=== PATIENT | female | born 1995 | race Caucasian/White ===

== ENCOUNTER 2021-06-02 10:24 | Emergency (ER) | payer OTHER ==
[2021-06-02 10:36] VITALS: BP 125/87
--- NOTE | 2021-06-02 10:47 | ED Physician Documentation ---
PD HPI HEENT - Stated complaint Stated Complaint: BLOOD CLOTS IN MOUTH - Chief complaint Chief Complaint: Heent - History obtained from History obtained from: Patient - Additional information Additional information: Had Buzz & Buzz vaccine last night. Noted to very slightly painful spots in her mouth today and she is worried about clotting. No other rashes or easy bleeding/bruising. Review of Systems Constitutional: reports: Reviewed and negative Eyes: reports: Reviewed and negative Ears: reports: Reviewed and negative Nose: reports: Reviewed and negative Cardiac: reports: Reviewed and negative PD PAST MEDICAL HISTORY - Allergies Allergies/Adverse Reactions: Allergies Allergy/AdvReac Type Severity Reaction Status Date / Time Penicillins Allergy Hives Verified 06/02/21 10:36 PD ED PE NORMAL - Vitals Vital signs reviewed: Yes - General General: Alert and oriented X 3, No acute distress - HEENT HEENT: Other (On the left buccal mucosa there is a 2 mm blood blister and on the right buccal mucosa tiny 1 this even smaller.) - Neuro Neuro: Alert and oriented X 3, Normal speech Results - Vitals Vitals: Vital Signs - 24 hr 06/02/21 10:32 Temperature 36.3 C L Heart Rate 109 H Respiratory 16 Rate Blood Pressure 125/87 H O2 Saturation 99 Oxygen O2 Source Room air - Labs Labs: Laboratory Tests 06/02/21 10:55 WBC 6.4 RBC 5.07 Hgb 15.5 Hct 44.3 MCV 87.4 MCH 30.6 MCHC 35.0 RDW 11.8 L Plt Count 201 MPV 9.2 PD MEDICAL DECISION MAKING - ED course ED course: 25-year-old woman quite concerned about blood clots after having Buzz & Buzz vaccine yesterday. She has two blood blisters in her mouth that look posttraumatic. No other evidence of easy bleeding or bruising. CBC was done with no evidence of thrombocytopenia. Departure - Departure Disposition: 01 Home, Self Care Clinical Impression: Blood blister Condition: Good Record reviewed to determine appropriate education?: Yes Comments: Platelet count is normal at 201. Return for new or worsening symptoms. Discharge Date/Time: 06/02/21 11:58
[2021-06-02 11:00] LABS: HCT - HEMATOCRIT 44.3 % (37.0-47.0); HGB - HEMOGLOBIN 15.5 g/dL (12.0-16.0); MEAN CORPUSCULAR HEMOGLOBIN 30.6 pg (27.0-31.0); MEAN CORPUSCULAR VOLUME 87.4 fL (81.0-99.0); MEAN PLATELET VOLUME 9.2 fL (7.9-10.8); RED BLOOD COUNT 5.07 10^6/uL (4.20-5.40); RED CELL DISTRIBUTION WIDTH 11.8 % (12.0-15.0); WHITE BLOOD COUNT 6.4 x10^3/uL (4.8-10.8)
== END 2021-06-02 11:58 | disposition home or self-care (01) ==
LOC: ED 10:24
DX: S00.522A Blister (nonthermal) of oral cavity, initial encounter (principal); X58.XXXA Exposure to other specified factors, initial encounter
CPT/HCPCS: 36415; 85027; 99283

== ENCOUNTER 2021-07-13 15:51 | Emergency (ER) | payer OTHER ==
--- NOTE | 2021-07-13 16:12 | ED Physician Documentation ---
PD HPI NVD - Stated complaint Stated Complaint: NAUSEA/OB - Chief complaint Chief Complaint: Abd Pain - History obtained from History obtained from: Patient - History of Present Illness Timing - onset: How many weeks ago (09/25) Timing - duration: Weeks (09/25) Timing - details: Gradual onset, Still present (worse the past couple of days, unable to eat anything, and nausea with even fluids now.) Associated symptoms: Abdominal pain (mild cramping lower abd). No: Fever Contributing factors: Other (early with positive preg test, EGA 7 weeks by dates.). No: Sick contact, Bad food Improved by: No: Vomiting Worsened by: Eating Similar symptoms before: Has not had sx before Recently seen: Clinic (had home preg test positive and went to [facility] and had blood test to confirm. Has not seen a provider as yet.) Review of Systems Constitutional: denies: Fever, Chills Nose: denies: Rhinorrhea / runny nose, Congestion Throat: denies: Sore throat Respiratory: denies: Cough GI: reports: Nausea, Vomiting. denies: Constipation, Diarrhea : reports: Now EGA (7). denies: Dysuria, Frequency, Discharge, Vaginal bleeding Neurologic: reports: Generalized weakness. 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 ) - Past Surgical History Past Surgical History: No - Present Medications Home Medications: Ambulatory Orders Medication Instructions Recorded Confirmed Doxylamine Succinate [Unisom] 25 mg PO TID #60 tablet 07/13/21 Famotidine [Pepcid] 20 mg PO DAILY #20 tablet 07/13/21 Ondansetron Odt [Zofran] 4 mg TL Q6H PRN #20 tablet 07/13/21 Pyridoxine HCl (Vitamin B6) 25 mg PO BID #60 tablet 07/13/21 [Vitamin B-6] dexAMETHasone [Decadron] 4 mg PO DAILY #5 tablet 07/13/21 - Allergies Allergies/Adverse Reactions: Allergies Allergy/AdvReac Type Severity Reaction Status Date / Time Penicillins Allergy Hives Verified 06/02/21 10:36 - Social History Does the pt smoke?: No Smoking Status: Never smoker Does the pt drink ETOH?: No Does the pt have substance abuse?: No - Immunizations Immunizations are current?: No - POLST Patient has POLST: No PD ED PE NORMAL - Vitals Vital signs reviewed: Yes - General General: Alert and oriented X 3, No acute distress, Well developed/nourished - Neck Neck: Supple, no meningeal sign, No adenopathy - Cardiac Cardiac: RRR, No murmur - Respiratory Respiratory: Clear bilaterally - Abdomen Abdomen: Normal bowel sounds, Soft, Non distended, No organomegaly, Other (mild tenderness suprapubic area without guarding. ) - Female Female : Deferred - Rectal Rectal: Deferred - Back Back: No CVA TTP - Derm Derm: Normal color, Warm and dry - Neuro Neuro: Alert and oriented X 3, No motor deficit, Normal speech Results - Vitals Vitals: Vital Signs - 24 hr 07/13/21 07/13/21 16:05 18:24 Temperature 36.9 C Heart Rate 80 80 Respiratory 19 16 Rate Blood Pressure 128/75 129/88 H O2 Saturation 100 99 Oxygen O2 Source Room air - Labs Labs: Laboratory Tests 07/13/21 07/13/21 07/13/21 16:15 16:15 16:15 WBC 10.7 RBC 5.01 Hgb 15.2 Hct 44.3 MCV 88.4 MCH 30.3 MCHC 34.3 RDW 12.3 Plt Count 252 MPV 9.5 Neut # (Auto) 7.6 H Lymph # (Auto) 2.1 [place] # (Auto) 0.7 Eos # (Auto) 0.2 Baso # (Auto) 0.1 Absolute Nucleated RBC 0.00 Nucleated RBC % 0.0 Sodium 135 Potassium 3.1 L Chloride 100 L Carbon Dioxide 25 Anion Gap 10.0 BUN 10 Creatinine 0.7 Estimated GFR (MDRD) 104 Glucose 117 H Calcium 9.5 Total Bilirubin 0.8 AST 19 ALT 15 Alkaline Phosphatase 46 Total Protein 7.9 Albumin 4.7 Globulin 3.2 Albumin/Globulin Ratio 1.5 Lipase 43 HCG, Quant Urine Color YELLOW Urine Clarity CLEAR Urine pH 6.5 Ur Specific [place] 1.020 Urine Protein NEGATIVE Urine Glucose (UA) NEGATIVE Urine Ketones 15 H Urine Occult Blood NEGATIVE Urine Nitrite NEGATIVE Urine Bilirubin NEGATIVE Urine Urobilinogen 0.2 (NORMAL) Ur Leukocyte Esterase NEGATIVE Ur Microscopic Review NOT INDICATED Urine Culture Comments NOT INDICATED Urine HCG, Qual POSITIVE 07/13/21 16:15 WBC RBC Hgb Hct MCV MCH MCHC RDW Plt Count MPV Neut # (Auto) Lymph # (Auto) [place] # (Auto) Eos # (Auto) Baso # (Auto) Absolute Nucleated RBC Nucleated RBC % Sodium Potassium Chloride Carbon Dioxide Anion Gap BUN Creatinine Estimated GFR (MDRD) Glucose Calcium Total Bilirubin AST ALT Alkaline Phosphatase Total Protein Albumin Globulin Albumin/Globulin Ratio Lipase HCG, Quant 05952.00 Urine Color Urine Clarity Urine pH Ur Specific [place] Urine Protein Urine Glucose (UA) Urine Ketones Urine Occult Blood Urine Nitrite Urine Bilirubin Urine Urobilinogen Ur Leukocyte Esterase Ur Microscopic Review Urine Culture Comments Urine HCG, Qual - Rads (name of study) OB U/S Radiology: Prelim report reviewed (single live IUP 6.2 wks without acute problems. Normal adnexae. ), See rad report PD MEDICAL DECISION MAKING - ED course Complexity details: considered differential (seems like hyperemesis with . Gave IV fluids and meds here with improved symptoms. Can Rx famotidine and also ACOG advised meds. ), d/w patient Departure - Departure Disposition: 01 Home, Self Care Clinical Impression: Hypokalemia Nausea and vomiting Qualifiers: Vomiting type: unspecified Vomiting Intractability: intractable Qualified Code (s): R11.2 - Nausea with vomiting, unspecified Qualifiers: Weeks of gestation: less than 8 weeks Qualified Code(s): Z3A.01 - Less than 8 weeks gestation of Condition: Stable Record reviewed to determine appropriate education?: Yes Instructions: ED Preg Morning Sickness, ED Diet High Potassium Follow-Up: GORDO DELGADO DO [Primary Care Provider] - Prescriptions: dexAMETHasone [Decadron] 4 mg PO DAILY #5 tablet Famotidine [Pepcid] 20 mg PO DAILY #20 tablet Doxylamine Succinate [Unisom] 25 mg PO TID #60 tablet Pyridoxine HCl (Vitamin B6) [Vitamin B-6] 25 mg PO BID #60 tablet Ondansetron Odt [Zofran] 4 mg TL Q6H PRN #20 tablet PRN Reason: Nausea / Vomiting Comments: Frequent fluids and bland food initially. Progress diet as tolerated. The [employer] recommends a combination of medicines for the hyperemesis gravidarum that you are having: Vitamin B6 twice daily as well as doxylamine for nausea 2-3 times daily. Also Decadron steroid daily for just the next several days. Add ondansetron if needed for nausea. With the persistent nausea and vomiting you have had, your stomach would also have gotten irritated so add famotidine acid reducing medicine daily for the next 2 to 3 weeks. Hold off on the vitamin for the next few days until you are feeling well enough and then you can resume it. Sometimes the iron in the vitamin is irritating to the stomach. Follow-up with your [employer]IST[employer] next week, call for an appointment. Your ultrasound showed a normal at just under 7 weeks. Your blood tests and urine test are good with just low potassium of 3.1. This can be treated with just high potassium foods and does not require a particular supplement per se. Add Tylenol if needed for pains and cramps. I transmitted your prescriptions to [facility] in [place]. Discharge Date/Time: 07/13/21 18:26
[2021-07-13 16:23] LABS: BASOPHILS # (AUTO) 0.1 10^3/uL (0.0-0.1); BASOPHILS % (AUTO) 0.5 %; EOSINOPHILS # (AUTO) 0.2 10^3/uL (0.0-0.7); EOSINOPHILS % (AUTO) 1.8 %; HCT - HEMATOCRIT 44.3 % (37.0-47.0); HGB - HEMOGLOBIN 15.2 g/dL (12.0-16.0); LYMPHOCYTES # (AUTO) 2.1 10^3/uL (1.5-3.5); LYMPHOCYTES % (AUTO) 19.3 %; MEAN CORPUSCULAR HEMOGLOBIN 30.3 pg (27.0-31.0); MEAN CORPUSCULAR HGB CONC 34.3 g/dL (32.0-36.0); MEAN CORPUSCULAR VOLUME 88.4 fL (81.0-99.0); MEAN PLATELET VOLUME 9.5 fL (7.9-10.8); MONOCYTES # (AUTO) 0.7 10^3/uL (0.0-1.0); MONOCYTES % (AUTO) 6.8 %; NEUTROPHILS # (AUTO) 7.6 10^3/uL (1.5-6.6); NEUTROPHILS % (AUTO) 71.3 %; PLT - PLATELET COUNT 252 10^3/uL (130-450); RED BLOOD COUNT 5.01 10^6/uL (4.20-5.40); RED CELL DISTRIBUTION WIDTH 12.3 % (12.0-15.0); WHITE BLOOD COUNT 10.7 x10^3/uL (4.8-10.8)
[2021-07-13 16:28] LABS: BILIRUBIN,URINE NEGATIVE (NEGATIVE); GLUCOSE, URINE (UA) NEGATIVE (NEGATIVE); KETONES,URINE (UA) 15 mg/dL (NEGATIVE); LEUKOCYTE ESTERASE, URINE NEGATIVE (NEGATIVE); NITRITE,URINE NEGATIVE (NEGATIVE); OCCULT BLOOD,URINE NEGATIVE (NEGATIVE); PH,URINE 6.5 PH (5.0-7.5); PROTEIN,URINE NEGATIVE (NEGATIVE); UROBILINOGEN,URINE 0.2 (NORMAL) E.U./dL (NORMAL)
[2021-07-13] MEDS ORDERED: SODIUM CHLORIDE 0.9% 1,000 ML IV STA ×2 (16:28→16:29)
[2021-07-13] MEDS ORDERED: ONDANSETRON 4 MG/2 ML VIAL IVP STA (16:28)
[2021-07-13] MEDS ORDERED: DEXAMETHASONE 10 MG/ML VIAL IVP STA (16:29)
[2021-07-13] MEDS ORDERED: FAMOTIDINE 20 MG/2 ML VIAL IVP STA (16:30)
[2021-07-13 16:33] LABS: CLARITY,URINE CLEAR (CLEAR); HCG UR QUAL POSITIVE
[2021-07-13 16:35] LABS: ALBUMIN 4.7 g/dL (3.2-5.5); ALBUMIN/GLOBULIN RATIO 1.5 (1.0-2.2); BILIRUBIN,TOTAL 0.8 mg/dL (0.2-1.0); CALCIUM 9.5 mg/dL (8.5-10.3); CREATININE 0.7 mg/dL (0.4-1.0); POTASSIUM 3.1 mmol/L (3.5-5.0); TOTAL PROTEIN 7.9 g/dL (6.7-8.2)
--- NOTE | 2021-07-13 17:53 | Ultrasound Report ---
PROCEDURE: OB First Trimester w/TV INDICATIONS: 7WKS EGA, Lower cramps, N/V OUTSIDE/PRIOR DATING DATA: Last menstrual period (LMP): LMP-based estimated date of delivery (AGUSTO): 02/28/2022. First dating scan (date and location): 07/13/2021. Estimated date of delivery (AGUSTO) from first dating scan: 03/06/2022. The below data below was generated using the ultrasound AGUSTO of 03/06/2022 TECHNIQUE: Real-time scanning was performed of the fetus and maternal pelvic organs, with image documentation. Endovaginal scanning was also performed to better visualize the fetus and maternal ovaries. COMPARISON: None FINDINGS: Embryo: Single living intrauterine identified. pole and yolk sac identified. [place]-r ump length measures 0.5 cm corresponding to ultrasound estimated gestational age of 6 weeks 2 days. T here is a small 2.1 x 2.1 x 0.6 cm subchorionic bleed. Heart rate: 127 bpm Measurement variability in dating: +/- 4 weeks by LMP, +/- 7 days by mean sac diameter (use before 6 weeks gestation if crown-rump length not able to be measured), +/- 5 days by crown-rump length (6-12 weeks gestation). Maternal organs: Right corpus luteal cyst IMPRESSION: 1. Single living intrauterine with ultrasound estimated gestational age of 6 weeks 2 days c orresponding to ultrasound AGUSTO of 03/06/2022. 2. 2.1 x 2.1 x 0.6 cm naz-gestational bleed. Reviewed by: Kaylene Maloney MD, PhD on 07/13/2021 5:51 PM PDT Approved by: Kaylene Maloney MD, PhD on 07/13/2021 5:51 PM PDT Station ID: [id number]
[2021-07-13 18:25] VITALS: BP 129/88
== END 2021-07-13 18:26 | disposition home or self-care (01) ==
LOC: ED 15:51
DX: O21.1 Hyperemesis gravidarum with metabolic disturbance (principal); Z3A.01 Less than 8 weeks gestation of pregnancy
CPT/HCPCS: 36415; 80053; 81001; 81003; 81025; 83690; 84702; 85025; 87086; 96361; 96374; 99284

== ENCOUNTER 2021-08-03 07:51 | Emergency (ER) | payer OTHER ==
[2021-08-03] MEDS ORDERED: SODIUM CHLORIDE 0.9% 1,000 ML IV STA (08:22)
[2021-08-03 08:27] LABS: BASOPHILS % (AUTO) 0.5 %; EOSINOPHILS # (AUTO) 0.3 10^3/uL (0.0-0.7); EOSINOPHILS % (AUTO) 3.5 %; HCT - HEMATOCRIT 39.1 % (37.0-47.0); HGB - HEMOGLOBIN 13.8 g/dL (12.0-16.0); LYMPHOCYTES # (AUTO) 1.4 10^3/uL (1.5-3.5); LYMPHOCYTES % (AUTO) 17.5 %; MEAN CORPUSCULAR HEMOGLOBIN 30.9 pg (27.0-31.0); MEAN CORPUSCULAR HGB CONC 35.3 g/dL (32.0-36.0); MEAN CORPUSCULAR VOLUME 87.7 fL (81.0-99.0); MEAN PLATELET VOLUME 9.8 fL (7.9-10.8); MONOCYTES # (AUTO) 0.5 10^3/uL (0.0-1.0); MONOCYTES % (AUTO) 6.6 %; NEUTROPHILS # (AUTO) 5.6 10^3/uL (1.5-6.6); NEUTROPHILS % (AUTO) 71.6 %; PLT - PLATELET COUNT 235 10^3/uL (130-450); RED BLOOD COUNT 4.46 10^6/uL (4.20-5.40); RED CELL DISTRIBUTION WIDTH 12.1 % (12.0-15.0); WHITE BLOOD COUNT 7.8 x10^3/uL (4.8-10.8)
[2021-08-03 08:37] LABS: ALBUMIN 4.1 g/dL (3.2-5.5); ALBUMIN/GLOBULIN RATIO 1.2 (1.0-2.2); BILIRUBIN,TOTAL 0.7 mg/dL (0.2-1.0); CALCIUM 9.4 mg/dL (8.5-10.3); CREATININE 0.6 mg/dL (0.4-1.0); POTASSIUM 3.5 mmol/L (3.5-5.0); TOTAL PROTEIN 7.4 g/dL (6.7-8.2)
[2021-08-03 10:06] LABS: BILIRUBIN,URINE NEGATIVE (NEGATIVE); GLUCOSE, URINE (UA) NEGATIVE (NEGATIVE); KETONES,URINE (UA) NEGATIVE (NEGATIVE); LEUKOCYTE ESTERASE, URINE NEGATIVE (NEGATIVE); NITRITE,URINE NEGATIVE (NEGATIVE); OCCULT BLOOD,URINE NEGATIVE (NEGATIVE); PROTEIN,URINE NEGATIVE (NEGATIVE); UROBILINOGEN,URINE 0.2 (NORMAL) E.U./dL (NORMAL)
[2021-08-03 10:09] VITALS: BP 109/68
[2021-08-03 10:13] LABS: CLARITY,URINE HAZY (CLEAR)
[2021-08-03 10:14] LABS: AMORPHOUS SEDIMENT,UR Few /LPF; BACTERIA,URINE Moderate /HPF (None Seen); RBC,URINE 0-5 /HPF (0-5); SQUAMOUS EPITHELIAL CELL,UR MANY Squamous (<= Few); WBC,URINE 0-3 /HPF (0-5)
[2021-08-03] MEDS ORDERED: ONDANSETRON 4 MG/2 ML VIAL IVP STA (10:17)
--- NOTE | 2021-08-03 10:28 | ED Physician Documentation ---
PD HPI NVD - Stated complaint Stated Complaint: N/V, DIZZY - Chief complaint Chief Complaint: Abd Pain - History obtained from History obtained from: Patient - History of Present Illness Timing - onset: How many weeks ago (6) Timing - duration: Hours Timing - details: Gradual onset, Still present Associated symptoms: Dizzy. No: Fever, Abdominal pain Contributing factors: Other () Improved by: Vomiting, Meds Similar symptoms before: Diagnosis () Recently seen: Clinic, Emergency Dept - Additonal information Additional information: 25-year-old female who is 10 to 11 weeks has developed nausea and vomiting that is associated with and she has had nausea every day. She is now developed enough vomiting that she feels lightheaded and dizzy and she has come to the emergency department. She does have some Zofran at home this does seem to help. Review of Systems Constitutional: denies: Fever Eyes: denies: Decreased vision Ears: denies: Ear pain Nose: denies: Congestion Throat: denies: Sore throat Respiratory: denies: Cough GI: reports: Nausea, Vomiting. 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 HEENT: None Psych: None Musculoskeletal: None Derm: None - Past Surgical History Past Surgical History: No - Present Medications Home Medications: Ambulatory Orders Medication Instructions Recorded Confirmed Ondansetron Odt [Zofran] 4 mg TL Q6H PRN #20 tablet 07/13/21 08/03/21 Doxylamine Succinate [Unisom] 25 mg PO TID PRN 08/03/21 08/03/21 Ondansetron Odt [Zofran] 4 mg TL Q6H PRN #10 tablet 08/03/21 Pyridoxine HCl (Vitamin B6) 25 mg PO BID PRN 08/03/21 08/03/21 [Vitamin B-6] - Allergies Allergies/Adverse Reactions: Allergies Allergy/AdvReac Type Severity Reaction Status Date / Time Penicillins Allergy Hives Verified 08/03/21 07:53 - Social History Does the pt smoke?: No Smoking Status: Never smoker Does the pt drink ETOH?: No Does the pt have substance abuse?: No - Immunizations Immunizations are current?: No - POLST Patient has POLST: No PD ED PE NORMAL - General General: Alert and oriented X 3, No acute distress, Well developed/nourished - HEENT HEENT: Atraumatic, PERRL, EOMI - Neck Neck: Supple, no meningeal sign, No bony TTP - Cardiac Cardiac: RRR, No murmur - Respiratory Respiratory: No respiratory distress, Clear bilaterally - Abdomen Abdomen: Normal bowel sounds, Soft, Non tender, Non distended, No organomegaly - Back Back: No CVA TTP, No spinal TTP - Derm Derm: Normal color, Warm and dry, No rash - Extremities Extremities: No deformity, No tenderness to palpate, No edema - Neuro Neuro: Alert and oriented X 3, 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, No motor deficit, No sensory deficit, Normal speech Eye Opening: Spontaneous Motor: Obeys Commands Verbal: Oriented GCS Score: 15 - Psych Psych: Normal mood, Normal affect Results - Vitals Vitals: Vital Signs - 24 hr 08/03/21 08/03/21 07:54 10:07 Temperature 36.7 C 37.5 C Heart Rate 81 73 Respiratory 18 18 Rate Blood Pressure 106/80 109/68 O2 Saturation 98 100 Oxygen O2 Source Room air - Labs Labs: Laboratory Tests 08/03/21 08/03/21 08/03/21 08:24 08:24 09:36 WBC 7.8 RBC 4.46 Hgb 13.8 Hct 39.1 MCV 87.7 MCH 30.9 MCHC 35.3 RDW 12.1 Plt Count 235 MPV 9.8 Neut # (Auto) 5.6 Lymph # (Auto) 1.4 L [place] # (Auto) 0.5 Eos # (Auto) 0.3 Baso # (Auto) 0.0 Absolute Nucleated RBC 0.00 Nucleated RBC % 0.0 Sodium 137 Potassium 3.5 Chloride 102 Carbon Dioxide 26 Anion Gap 9.0 BUN 8 Creatinine 0.6 Estimated GFR (MDRD) 124 Glucose 109 H Calcium 9.4 Total Bilirubin 0.7 AST 18 ALT 12 Alkaline Phosphatase 36 L Total Protein 7.4 Albumin 4.1 Globulin 3.3 Albumin/Globulin Ratio 1.2 Lipase 43 Urine Color YELLOW Urine Clarity [place] Urine pH 7.0 Ur Specific [place] 1.020 Urine Protein NEGATIVE Urine Glucose (UA) NEGATIVE Urine Ketones NEGATIVE Urine Occult Blood NEGATIVE Urine Nitrite NEGATIVE Urine Bilirubin NEGATIVE Urine Urobilinogen 0.2 (NORMAL) Ur Leukocyte Esterase NEGATIVE Urine RBC 0-5 Urine WBC 0-3 Ur Squamous Epith Cells MANY Squamous H Amorphous Sediment Few Urine Bacteria Moderate H Ur Microscopic Review INDICATED Urine Culture Comments NOT INDICATED Procedures - IVC sono (time) 0818 Bedside IVC sono: IVC measures (cm) (1.51), Euvolemia PD MEDICAL DECISION MAKING - ED course Complexity details: reviewed results, re-evaluated patient, considered differential, d/w patient ED course: 25-year-old fit female with recurrent nausea vomiting feels that she is dehydrated she has some normal-appearing volume on interrogation the inferior vena cava. She is having daily vomiting and we have provided some intravenous fluids as well as Zofran to provide a reserve. Departure - Departure Disposition: 01 Home, Self Care Clinical Impression: Hyperemesis gravidarum Condition: Stable Instructions: ED Preg Morning Sickness Follow-Up: GORDO DELGADO DO [Primary Care Provider] - Prescriptions: Ondansetron Odt [Zofran] 4 mg TL Q6H PRN #10 tablet PRN Reason: Nausea / Vomiting
== END 2021-08-03 10:50 | disposition home or self-care (01) ==
LOC: ED 07:51
DX: O21.0 Mild hyperemesis gravidarum (principal); Z3A.10 10 weeks gestation of pregnancy
CPT/HCPCS: 36415; 80053; 81001; 81003; 83690; 85025; 87086; 96374; 99284